=== PATIENT | male | born 1940 | race Caucasian/White ===

== ENCOUNTER 2020-12-07 10:58 | Emergency (ER) | payer OTHER ==
[2020-12-07 11:17] VITALS: BMI 30.1
[2020-12-07 12:18] LABS: BASO % 0.6 % (0-2.0); EOS % 1.2 % (0-4.5); HEMATOCRIT 39.5 % (35.4-49); HEMOGLOBIN 13.7 GM/dL (11.7-16.9); LYMPH % 22.5 % (8-40); MCH 32.3 pg (25.7-33.7); MCHC 34.8 g/dl (32.0-35.9); MEAN CELL VOLUME 92.8 fl (80-96); MEAN PLT VOLUME 8.1 fl (7.5-11.1); MONO % 17.6 % (3.8-10.2); NEUT % 58.1 % (42.8-82.8); PLATELET COUNT 191 K/MM3 (134-434); RBC 4.26 M/mm3 (4.00-5.60); RDW 13.7 % (11.9-15.9); WHITE BLOOD COUNT 5.4 K/mm3 (4.0-10.0)
[2020-12-07 12:36] LABS: ALBUMIN 3.9 g/dl (3.4-5.0); BLOOD UREA NITROGEN 21.6 mg/dL (7-18)
[2020-12-07 12:39] LABS: CREATININE 1.1 mg/dL (0.55-1.3)
[2020-12-07 12:40] LABS: BILIRUBIN,TOTAL 0.6 mg/dL (0.2-1); TOT PROT 8.1 g/dl (6.4-8.2)
[2020-12-07] MEDS ORDERED: BAMLANIVIMAB 700 MG in SODIUM CHLORIDE 250 ML IVPB ONE (14:06)
[2020-12-07 15:54] VITALS: TEMP 97.9
[2020-12-07 17:05] VITALS: BP 117/72; PULSE 72
== END 2020-12-07 18:43 | disposition home or self-care (01) ==
LOC: JER 10:58
DX: U07.1 COVID-19 (principal)
CPT/HCPCS: 36415; 80053; 85025; 96374; 99284-25; C9803; M0239; Q0239; U0003